=== PATIENT | male | born 1960 | race Caucasian/White ===

== ENCOUNTER 2023-06-18 19:00 | Emergency (ER) | payer OTHER, SELFPAY ==
--- NOTE | 2023-06-18 | ECG_ITS ---
Test Reason : CLEARANCE Blood Pressure : / mmHG Vent. Rate : 077 BPM Atrial Rate : 077 BPM P-R Int : 168 ms QRS Dur : 088 ms QT Int : 358 ms P-R-T Axes : 079 065 065 degrees QTc Int : 405 ms Normal sinus rhythm Nonspecific T wave abnormality Abnormal ECG No previous ECGs available Referred By: Generic ED Physician Electronically Signed By:SUZIE MAYS MD
[2023-06-18 19:44] VITALS: BP 142/66; PULSE 68; RESP 18; TEMP 36.9; O2SAT 97; BMI 21.1
--- NOTE | 2023-06-18 19:45 | ED_ITS ---
HPI - General Adult General Chief complaint: Medical Clearance Stated complaint: medical clearance Time Seen by Provider: 06/18/23 21:48 Source: patient Mode of arrival: ambulatory History of Present Illness HPI narrative: 62-year-old male who [facility] use [facility] and drugs-primarily cocaine. He has no acute complaints at this time. Related Data Allergies Allergy/AdvReac Type Severity Reaction Status Date / Time No Known Allergies Allergy Verified 06/18/23 19:47 Review of Systems 2 Review of Systems: Pertinent positives and negatives as stated in HPI PMFSH Past Medical History Source: nursing notes reviewed Social History Social History Advance Directives: No Advance Directives Information Provided: No Physical Exam ED Vital Signs: Vital Signs - 24 hr 06/18/23 19:44 Temperature 98.4 F Pulse Rate 68 Respiratory Rate 18 Blood Pressure 142/66 H Pulse Oximetry 97 Oxygen Delivery Method Room Air BMI result Body Mass Index 21.1 VITAL SIGNS: Reviewed. GENERAL: Well developed, well nourished, in no acute distress. HEAD: Normocephalic/atraumatic EYES: PERRLA, EOMI EARS: Ext canals without abnormality NOSE: Nares patent bilateral OROPHARYNX: no oral lesions noted, posterior pharynx clear NECK: Supple, no adenopathy LUNGS: Normal breath sounds. No adventitious sounds or accessory muscle use. SpO2<97> CARDIOVASCULAR: Regular rate and rhythm without noted murmurs ABDOMEN: Soft, non-tender, non-distended with bowel sounds. MUSCULOSKELETAL: No tenderness, deformities, or effusions noted on gross inspection. EXTREMITIES: No cyanosis, clubbing or edema. SKIN: Inspection of the skin reveals no rashes NEUROLOGIC: Alert and oriented x 4. Strength and sensation to light touch were grossly intact x 4, cranial nerves 2-12 are grossly intact. Course Course Course Narrative: This is a rapid medical exam. Deferred additional HPI, ROS, PE to primary provider. 62 yo male with history of PTSD, bipolar disorder here seeking detox (crack cocaine, alcohol), [facility] and was referred into the emergency room for medical clearance 1st. Patient no physical complaints. Denies SI or HI. Will obtain labs, [place], COVID screen VSS Medical Decision Making Medical Decision Making MDM Narrative: 60-year-old male with history and clinical presentation consistent with polysubstance use disorder, on review of all investigations there is no leukocytosis/left shift, there is no thrombocytopenia there is a normocytic anemia of unclear significance as there are no comparison labs but there is no history of clinical findings to suggest acute bleeding. Chemistry indices are negative for ISAI and there is no electrolyte or liver enzyme abnormalities. Patient is alcohol is undetectable, salicylate and acetaminophen values are undetectable, urine toxicology demonstrates positivity for fentanyl and cocaine. COVID-19 testing is negative and EKG shows no QT or QTC prolongation. This time patient is medically cleared for further evaluation for detox program. Patient placed in physician observation because the patient needed more time for evaluation by the assistant baseball coach in the morning to coordinate detox program at [facility]. At the time observation was started the patient's vital signs were stable, patient is alert and oriented, neuro: Nonfocal, CV RRR, lungs clear Differential Diagnosis Differential Diagnoses: The differential diagnosis associated with the presentation includes Please see the discussion above Admission/Observation Consideration of admission/observation: Escalation of care including admission/observation considered Please see the discussion above Lab Data MDM Lab Attestation statement: I reviewed the patient's lab results. Please see the discussion above 06/18/23 20:03 06/18/23 20:03 Labs: Lab Results 06/18/23 06/18/23 06/18/23 Range/Units 20:03 20:04 21:35 WBC 7.5 (4.8-10.8) X10*3/uL RBC 4.13 L (4.60-5.80) X10*6/uL Hgb 12.2 L (14.0-18.0) g/dl Hct 37.4 L (42.0-52.0) % MCV 90.6 (80.0-98.0) fL MCH 29.5 (27.0-33.0) pg MCHC 32.6 (31.0-36.0) g/dl RDW 13.2 (11.0-16.0) % Plt Count 243 (160-400) X10*3/uL MPV 9.6 (9.4-12.4) fL Immature Gran % (Auto) 0.1 (0.0-0.4) % Neut % (Auto) 61.4 (45-73) % Lymph % (Auto) 26.5 (20-40) % [place] % (Auto) 10.1 (2-11) % Eos % (Auto) 1.2 (0-4) % Baso % (Auto) 0.7 (0-2) % Lymph # (Auto) 2.0 (1.2-4.9) X10*3/uL [place] # (Auto) 0.8 (0.1-1.2) X10*3/uL Eos # (Auto) 0.1 (0.0-0.4) X10*3/uL Baso # (Auto) 0.1 (0.0-0.2) X10*3/uL Abs Immat Gran (auto) 0.01 (0.00-0.03) X10*3/uL Absolute Neuts (auto) 4.6 (2.0-8.3) x10*3/uL Absolute Nucleated RBC 0.000 (0.0-0.012) X10*3/uL Nucleated RBC % (auto) 0.0 (0.0-0.2) /100WBC Sodium 144 (135-145) mmol/L Potassium 4.2 (3.3-5.1) mmol/L Chloride 110 H (96-108) mmol/L Carbon Dioxide 26 (22-29) mmol/L Anion Gap 12 (12-20) BUN 21 H (9-16) mg/dL Creatinine 0.82 (0.5-1.4) mg/dL Estim Creat Clear Calc 95.9 Estimated GFR > 60 Random Glucose 74 (60-115) mg/dL Calcium 9.0 (8.4-10.2) mg/dL Total Bilirubin 0.1 (0.0-1.0) mg/dL Direct Bilirubin < 0.2 (0.0-0.5) mg/dL AST 21 (5-37) U/L ALT 17 (0-40) U/L Alkaline Phosphatase 77 (39-117) U/L Total Protein 7.3 (6.5-8.0) g/dL Albumin 3.8 (3.5-5.0) g/dL Salicylates < 5.0 L (15-30) mg/dL Urine Opiates Screen Not Detected (Not Detect) Urine Fentanyl Screen POSITIVE H (Not Detect) Acetaminophen < 3 (<30) mcg/mL Ur Barbiturates Screen Not Detected (Not Detect) Ur Phencyclidine Scrn Not Detected (Not Detect) Ur Amphetamines Screen Not Detected (Not Detect) U Benzodiazepines Scrn Not Detected (Not Detect) Urine Cocaine Screen POSITIVE H (Not Detect) U Marijuana (THC) Screen Not Detected (Not Detect) Ethyl Alcohol < 10 mg/dL COVID-19 (TIFFANIE) Negative (Negative) COVID-19 Clin Com See Note Independent Interpretation I performed an independent interpretation of an: EKG Interpretation: Normal sinus rhythm, HR-77, no STEMI, IL/QRS/QTC is within normal limits. Chronic Conditions Patient?s care impacted by: Other Polysubstance use disorder Critical Care Time Critical Care Time Critical Care Time: Yes Total Critical Care Time: 30 Attestation: I personally attest to this time spent taking care of the patient. Discharge Plan Discharge Clinical Impression: Polysubstance use disorder Patient Disposition: Still a Patient
[2023-06-18 20:15] LABS: MANUAL DIFF FLAG NO
[2023-06-18 20:16] LABS: Basophils Absolute Auto 0.1 X10*3/uL (0.0-0.2); Basophils Percent Auto 0.7 % (0-2); Eosinophils Absolute Auto 0.1 X10*3/uL (0.0-0.4); Eosinophils Percent Auto 1.2 % (0-4); Hematocrit 37.4 % (42.0-52.0); Hemoglobin 12.2 g/dl (14.0-18.0); Imm Gran Abs Auto 0.01 X10*3/uL (0.00-0.03); Imm Gran Pct Auto 0.1 % (0.0-0.4); Lymphocytes Percent Auto 26.5 % (20-40); Mean Corpuscular HGB Conc 32.6 g/dl (31.0-36.0); Mean Corpuscular Hemoglobin 29.5 pg (27.0-33.0); Mean Corpuscular Volume 90.6 fL (80.0-98.0); Mean Platelet Volume 9.6 fL (9.4-12.4); Monocytes Absolute Auto 0.8 X10*3/uL (0.1-1.2); Monocytes Percent Auto 10.1 % (2-11); Neutrophils Absolute Auto 4.6 x10*3/uL (2.0-8.3); Neutrophils Percent Auto 61.4 % (45-73); Platelet Count 243 X10*3/uL (160-400); Red Blood Count 4.13 X10*6/uL (4.60-5.80); Red Cell Distribution Width 13.2 % (11.0-16.0); White Blood Count 7.5 X10*3/uL (4.8-10.8)
[2023-06-18 20:29] LABS: COVID-19 Test Negative (Negative); IDNOW Serial# 08D9AD1C
[2023-06-18 20:34] LABS: Alanine Aminotransferase 17 U/L (0-40); Albumin Level 3.8 g/dL (3.5-5.0); Alkaline Phosphatase 77 U/L (39-117); Anion Gap 12 (12-20); Aspartate Amino Transferase 21 U/L (5-37); Bilirubin Direct < 0.2 mg/dL (0.0-0.5); Bilirubin Total 0.1 mg/dL (0.0-1.0); Blood Urea Nitrogen 21 mg/dL (9-16); Carbon Dioxide 26 mmol/L (22-29); Chloride 110 mmol/L (96-108); Creatinine Clr Calc Pharmacy 95.9; Estimated Glomerular Filt Rate > 60; Glucose Random 74 mg/dL (60-115); Potassium 4.2 mmol/L (3.3-5.1); Sodium 144 mmol/L (135-145); Total Protein 7.3 g/dL (6.5-8.0)
[2023-06-18 20:38] LABS: Ethanol < 10 mg/dL
[2023-06-18 20:38] LABS: Acetaminophen LAB < 3 mcg/mL (<30); Salicylate < 5.0 mg/dL (15-30)
[2023-06-18 21:53] LABS: Amphetamine Screen Urine Not Detected (Not Detect); Barbiturates, Urine Not Detected (Not Detect); Benzodiazepines Screen Urine Not Detected (Not Detect); Cannabinoid Screen Urine Not Detected (Not Detect); Cocaine Screen Urine POSITIVE (Not Detect); Fentanyl, urine POSITIVE (Not Detect); Opiate Screen Urine Not Detected (Not Detect); Phencyclidine Screen Urine Not Detected (Not Detect)
--- NOTE | 2023-06-18 23:06 | MHC.CARE ---
T[facility]W called [facility]. Supervisor Mending reports no one is available for intake for Detox until the morning.Pt can call [phone] for OR nurse connect to begin the process. Pt is referred over to Recovery who can help facilitate in the morning.
--- NOTE | 2023-06-19 06:59 | PC.NURSE ---
Resumed care of patient who is reported to be going to [facility] today. Pt is currently sleeping, personal belongings in room. All needs met at this time
[2023-06-19 08:00] VITALS: BP 132/82; PULSE 79; RESP 16; TEMP 36.8; O2SAT 97
--- NOTE | 2023-06-19 08:03 | PC.NURSE ---
PT WAS SLEEPING EASILY AROUSED , HE STATES HE HAS GENERAL ACHES. VSS, HE IS AMBULATORY IN THE ED INDEPENDENTLY. HE HAS A LARGE AMOUNT OF BELONGINGS IN THE ROOM WITH HIM AND IS IN HIS OWN ATTIRE. IT APPEARS THAT HE HAS BEEN EATING AND TOLERATING PO INTAKE. AWAITING RECOVERY FOR ASSIST WITH [facility] PLACEMENT FOR DETOX
--- NOTE | 2023-06-19 09:49 | MHC.RECOVSUP ---
Met with pt in [facility] who is here for medical clearance. Pt reports taking about 2-3 grams of cocaine daily and was last treated at [facility] in [place] 7 months ago. Pt would like to go back to [place] and medical information has been faxed.
[2023-06-19 11:10] VITALS: BP 134/83; PULSE 68; RESP 20; TEMP 36.7; O2SAT 96
--- NOTE | 2023-06-19 14:01 | MHC.CARE ---
Pt is a 62 Y/O SINGLE, Kiswahili speaking, male who is previously unknown to the CARE Team.? Yesterday, pt self-presented to the ED [facility].? Pt is requesting to be medically cleared prior to going to the [facility].? Pt is denying SI, HI, and being in a psychiatric crisis.? He denies SI on the [place] Suicide Screening that was administered.? Pt is medically cleared and referred to the [facility] for [facility] the [facility]. CARE Team is advised that pt cannot be accepted to the [facility] without a crisis assessment.? CARE Team is assessing pt for psychiatric crisis.? Pt denies no hx of SI or attempts.? He reports no psychiatric admissions though he does report recent inpatient for substance use.? Pt is assessed in his room in minor care.? He is observed lying on the bed in the room and complains that his eyes hurt.? He makes no eye contact during the assessment.? Pt?s speech is unremarkable.? Pt appears his stated age; he appears disheveled, and is malodorous.? Luggage is noted to be in the room with him.? Pt has no patient observer with him, as there has been no indication of crisis. Pt reports ?ok? sleep and appetite stating he eats when there is food available to him.? He denies AVH, HI, SI, , and self-harm urges.? He denies any hx of.? Pt?s thought process appears linear and organized.? Pt?s insight, judgement, memory, and concentration appear unimpaired. Pt reports a dx of PTSD and stated ?That?s what they tell me? when asked if the dx was related to his service.? Pt stated that he served 5 years in the [employer] on a [employer]. Pt is homeless and unsheltered.? He reports that this was ?Self-inflicted?.? 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 Pt reports that he is a daily crack user. When asked why he presented to the ED he stated he is here for substance use help and housing. Pt reports he has no therapist or prescriber and stated he was at one time on medications but has stopped as it is challenging to maintain taking his medications as he ?bounces around from one place to another.? Pt denies withdrawal sx. No Known Allergies?
[2023-06-19 14:46] VITALS: BP 138/72; PULSE 67; RESP 18; TEMP 36.6; O2SAT 97
--- NOTE | 2023-06-19 18:23 | PC.NURSE ---
Patient continues to be calm and cooperative with staff. [facility]ing [facility] to [facility] at this time. No s/s of distress noted, patient has no complaints.
[2023-06-19 21:06] VITALS: BP 118/64; PULSE 80; RESP 19; TEMP 36.6; O2SAT 98
[2023-06-19 23:44] VITALS: BP 147/67; PULSE 60; RESP 12; TEMP 36.3; O2SAT 98
--- NOTE | 2023-06-20 01:00 | PC.NURSE ---
Pt ambulatory with steady gait to the bathroom. Food and drink provided as requested. No apparent distress noted.
--- NOTE | 2023-06-20 04:41 | PC.NURSE ---
Pt ambulatory with steady gait to the bathroom.
--- NOTE | 2023-06-20 04:50 | PC.NURSE ---
pt walking out care team attempting to contact to talk with pt first.
--- NOTE | 2023-06-20 05:10 | PC.NURSE ---
Pt is aox4, ambulatory with steady gait. Denies SI/HI. No distress noted. Pt gathered all belonging and expresses desire to leave. Reports not wanting to wait for [facility] to pick him up and is stating to leave as friend is waiting outside for him. Charge nurse made aware as pt is walking outside and will not stay.
== END 2023-06-20 05:15 | disposition left against medical advice (07) ==
PROVIDERS: Nurse Practitioner Family; Emergency Provider Student in an Organized Health Care Education/Training Program
DX: Z02.2 Encounter for examination for admission to residential institution (principal); F19.10 Other psychoactive substance abuse, uncomplicated; F43.10 Post-traumatic stress disorder, unspecified; F31.9 Bipolar disorder, unspecified; D64.9 Anemia, unspecified; Z11.52 Encounter for screening for COVID-19
CPT/HCPCS: 36415; 80048; 80076; 80143; 80179; 80307; 85025; 87635; 93005; 99285

== ENCOUNTER 2023-06-24 05:05 | Emergency (ER) | payer OTHER, SELFPAY ==
--- NOTE | ~2023-06-24 | XR_ITS ---
EXAMINATION: XR CHEST CLINICAL INFORMATION: Cough. COMPARISON: None available. TECHNIQUE: Frontal view of the chest was obtained. FINDINGS: The lungs are hyperexpanded. No focal consolidation. No pleural effusion. Cardiac silhouette is within normal limits. Old healed left-sided rib fractures. XR/XR chest 1V IMPRESSION: Hyperinflation.
[2023-06-24 05:34] VITALS: BP 128/75; PULSE 73; RESP 18; TEMP 37.2; O2SAT 96; BMI 21.6
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
--- NOTE | 2023-06-24 08:08 | ECG_ITS ---
Test Reason : OVERDOSE Blood Pressure : / mmHG Vent. Rate : 079 BPM Atrial Rate : 079 BPM P-R Int : 156 ms QRS Dur : 086 ms QT Int : 342 ms P-R-T Axes : 028 074 068 degrees QTc Int : 392 ms Normal sinus rhythm Normal ECG When compared with ECG of 18-JUN-2023 23:34, No significant change was found Referred By: Tena Nash Electronically Signed By:SUZIE MAYS MD
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
[2023-06-24 08:35] LABS: Basophils Percent Auto 0.3 % (0-2); Eosinophils Absolute Auto 0.1 X10*3/uL (0.0-0.4); Eosinophils Percent Auto 0.9 % (0-4); Hematocrit 40.8 % (42.0-52.0); Hemoglobin 13.5 g/dl (14.0-18.0); Imm Gran Abs Auto 0.03 X10*3/uL (0.00-0.03); Imm Gran Pct Auto 0.3 % (0.0-0.4); Lymphocytes Absolute Auto 1.1 X10*3/uL (1.2-4.9); Lymphocytes Percent Auto 10.4 % (20-40); MANUAL DIFF FLAG SCAN; Mean Corpuscular HGB Conc 33.1 g/dl (31.0-36.0); Mean Corpuscular Hemoglobin 29.3 pg (27.0-33.0); Mean Corpuscular Volume 88.7 fL (80.0-98.0); Monocytes Absolute Auto 0.9 X10*3/uL (0.1-1.2); Monocytes Percent Auto 7.9 % (2-11); Neutrophils Absolute Auto 8.6 x10*3/uL (2.0-8.3); Neutrophils Percent Auto 80.2 % (45-73); PLT CLUMP 1; Red Cell Distribution Width 12.8 % (11.0-16.0); SCAN SMEAR FLAG 1
[2023-06-24 08:37] LABS: White Blood Count 10.7 X10*3/uL (4.8-10.8)
[2023-06-24 08:49] LABS: COVID-19 Test Negative (Negative); IDNOW Serial# 08D9AD1C; IDNOW Serial# BCCEAD1C; Influenza A Negative (Negative); Influenza B2 Negative (Negative)
[2023-06-24 08:56] LABS: Platelet Count 159 X10*3/uL (160-400); SLIDE REVIEW VERIFIED
[2023-06-24 09:39] LABS: Alanine Aminotransferase 12 U/L (0-40); Albumin Level 3.5 g/dL (3.5-5.0); Alkaline Phosphatase 91 U/L (39-117); Anion Gap 8 (12-20); Aspartate Amino Transferase 18 U/L (5-37); Bilirubin Direct 0.1 mg/dL (0.0-0.5); Bilirubin Total 0.3 mg/dL (0.0-1.0); Blood Urea Nitrogen 12 mg/dL (9-16); Calcium 8.9 mg/dL (8.4-10.2); Carbon Dioxide 26 mmol/L (22-29); Chloride 108 mmol/L (96-108); Creatinine Clr Calc Pharmacy 110.1; Estimated Glomerular Filt Rate > 60; Ethanol < 10 mg/dL; Glucose Random 111 mg/dL (60-115); Magnesium 1.8 mg/dL (1.6-2.6); Potassium 3.9 mmol/L (3.3-5.1); Sodium 138 mmol/L (135-145); Total Protein 7.1 g/dL (6.5-8.0)
[2023-06-24 10:00] VITALS: BP 125/64; PULSE 80; RESP 18; O2SAT 96
[2023-06-24 11:40] LABS: Appearance Urine Clear; Color Urine Yellow; Glucose Urine UA Negative (Negative); Leukocyte Esterase Urine Negative (Negative); Nitrite Urine Negative (Negative); PH 5.5 (5.0-9.0); Specific Gravity - Urine 1.025 (1.005-1.025); Urine Blood Negative (Negative); Urine Ketones Negative (Negative); Urine Protein Negative (Neg-Trace)
[2023-06-24 12:20] LABS: Amphetamine Screen Urine Not Detected (Not Detect); Barbiturates, Urine Not Detected (Not Detect); Benzodiazepines Screen Urine Not Detected (Not Detect); Cannabinoid Screen Urine Not Detected (Not Detect); Cocaine Screen Urine POSITIVE (Not Detect); Fentanyl, urine POSITIVE (Not Detect); Opiate Screen Urine Not Detected (Not Detect); Phencyclidine Screen Urine Not Detected (Not Detect)
--- NOTE | 2023-06-24 14:21 | MHC.CARE ---
Pt was seen by CARE team for assessment and referred to recovery for placement in detox. Referral made to [place] [facility], they are reviewing for possible admission. [facility]ARE team to follow up this evening with [facility]. Recovery team to follow up in AM.
--- NOTE | 2023-06-24 14:33 | MHC.RECOVRN ---
Spoke with Gifty ([phone]? ext. [phone]) at the [facility] regarding [facility] referral, Gifty requesting [facility]. T/w faxed [facility]. Pts referral going to be reviewed by [facility] MD to determine if they can accept pt today.
[2023-06-24 15:30] VITALS: BP 144/63; PULSE 89; RESP 19; TEMP 36.3; O2SAT 98
--- NOTE | 2023-06-24 15:41 | MHC.RECOVRN ---
Followed up with [facility]ty at the [facility], reports they are swamped and pt has not been reviewed yet, most likely will be next shift (starting at 4PM). CARE Team aware.
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
[2023-06-24 17:47] VITALS: RESP 18
--- NOTE | 2023-06-24 18:09 | PC.NURSE ---
patient discharged to [facility] via [facility]. [place] in [place] arranged transport. Patient put chair in front of door and was refusing to get out of bed on EMS arrival. Patient did get out of bed and discharged with belongings.
== END 2023-06-24 18:11 | disposition still patient (30) ==
PROVIDERS: Emergency Provider Emergency Medicine
DX: F11.23 Opioid dependence with withdrawal (principal); R05.9 Cough, unspecified; Z11.52 Encounter for screening for COVID-19; Z20.822 Contact with and (suspected) exposure to COVID-19; Z79.899 Other long term (current) drug therapy
CPT/HCPCS: 71045; 80048; 80076; 80307; 81003; 83735; 85025; 87502; 87635; 93005; 99284; S9485

== ENCOUNTER 2023-09-21 09:27 | Emergency (ER) | payer OTHER, SELFPAY ==
--- NOTE | ~2023-09-21 | CT_ITS ---
EXAMINATION: CT ABDOMEN AND PELVIS WITH CONTRAST CLINICAL INFORMATION: Diffuse abdominal pain COMPARISON: None available. TECHNIQUE: Multidetector volumetric images were obtained from the superior aspect of the liver through the pubic symphysis following administration 85 mL of Omnipaque 350 intravenous contrast. Sagittal and coronal reformatted images were obtained on the technologist's workstation. Oral contrast: No This CT examination was performed using dose optimization techniques as appropriate, variously including the following: *Automated exposure control *Adjustment of mA and/or kV according to patient size (this includes techniques or standardized protocols for targeted exams where dose is matched to indication/reason for exam; i.e. extremities or head) *Use of iterative reconstruction technique DLP: 435 mGy-cm FINDINGS: LUNG BASES: Tree-in-bud micronodules in the left lung base with a 1.7 cm nodular opacity in the left lung base, 4:1 partially imaged. ABDOMINAL AND PELVIC WALL: Tiny fat-containing umbilical hernia. LIVER AND BILIARY TREE: Unremarkable. GALLBLADDER: Unremarkable. PANCREAS: Unremarkable. SPLEEN: Unremarkable. ADRENAL GLANDS: Unremarkable. KIDNEYS AND URETERS: Unremarkable. GASTROINTESTINAL TRACT: Small hiatal hernia. Colonic diverticulosis without peridiverticular inflammatory change to suggest diverticulitis. Fluid is noted within the rectum compatible with a diarrheal state. There are scattered areas of thick walled loops of small bowel with mild hyperenhancement suggestive of enteritis. Normal appendix. VASCULAR: Advanced atherosclerosis of the abdominal aorta. LYMPH NODES/PERITONEUM: No lymphadenopathy. FREE FLUID: None. BLADDER: Unremarkable. PELVIC VISCERA: Prostate is mildly enlarged. OSSEOUS STRUCTURES: Mild osteoarthritis of the hips. Multilevel degenerative disc disease. Transitional lumbosacral anatomy with a broad-based right L5 transverse process pseudoarticulating with the sacrum. CT/CT abdomen pelvis w IV con IMPRESSION: * There are scattered areas of thick walled loops of small bowel with mild hyperenhancement suggestive of enteritis. Fluid is noted within the rectum compatible with a diarrheal state. * Tree-in-bud micronodules in the left lung base with a 1.7 cm nodular opacity in the left lung base, partially imaged. While findings are favored to reflect sequelae of endobronchial infection per the 2017 revised Fleischner Society guidelines, further characterization with prompt complete chest CT is recommended. * Advanced atherosclerosis of the abdominal aorta. * Transitional lumbosacral anatomy with a broad-based right L5 transverse process pseudoarticulating with the sacrum.
[2023-09-21 09:46] VITALS: BP 149/90; PULSE 69; RESP 18; TEMP 36.6; O2SAT 98; BMI 21.1
[2023-09-21 10:03] LABS: MANUAL DIFF FLAG NO
[2023-09-21 10:08] LABS: Basophils Percent Auto 0.1 % (0-2); Eosinophils Absolute Auto 0.2 X10*3/uL (0.0-0.4); Eosinophils Percent Auto 2.2 % (0-4); Hematocrit 45.8 % (42.0-52.0); Imm Gran Abs Auto 0.04 X10*3/uL (0.00-0.03); Imm Gran Pct Auto 0.4 % (0.0-0.4); Lymphocytes Absolute Auto 1.3 X10*3/uL (1.2-4.9); Lymphocytes Percent Auto 12.4 % (20-40); Mean Corpuscular HGB Conc 32.8 g/dl (31.0-36.0); Mean Corpuscular Hemoglobin 29.9 pg (27.0-33.0); Mean Corpuscular Volume 91.4 fL (80.0-98.0); Mean Platelet Volume 9.4 fL (9.4-12.4); Monocytes Absolute Auto 0.7 X10*3/uL (0.1-1.2); Monocytes Percent Auto 7.1 % (2-11); Neutrophils Absolute Auto 7.9 x10*3/uL (2.0-8.3); Neutrophils Percent Auto 77.8 % (45-73); Platelet Count 392 X10*3/uL (160-400); Red Blood Count 5.01 X10*6/uL (4.60-5.80); Red Cell Distribution Width 15.8 % (11.0-16.0); White Blood Count 10.1 X10*3/uL (4.8-10.8)
[2023-09-21 10:18] LABS: Alanine Aminotransferase 253 U/L (0-40); Albumin Level 3.6 g/dL (3.5-5.0); Alkaline Phosphatase 145 U/L (39-117); Anion Gap 10 (12-20); Aspartate Amino Transferase 143 U/L (5-37); Bilirubin Direct 0.3 mg/dL (0.0-0.5); Bilirubin Total 0.6 mg/dL (0.0-1.0); Blood Urea Nitrogen 22 mg/dL (9-16); Calcium 9.6 mg/dL (8.4-10.2); Carbon Dioxide 27 mmol/L (22-29); Chloride 105 mmol/L (96-108); Creatinine Clr Calc Pharmacy 70.5; Estimated Glomerular Filt Rate > 60; Glucose Random 101 mg/dL (60-115); Lipase 31 U/L (8-78); Potassium 4.7 mmol/L (3.3-5.1); Sodium 137 mmol/L (135-145); Total Protein 8.4 g/dL (6.5-8.0)
[2023-09-21 10:20] LABS: COVID-19 Test Negative (Negative); IDNOW Serial# 08D9AD1C; IDNOW Serial# 152EDE1D; Influenza A Negative (Negative); Influenza B2 Negative (Negative)
--- NOTE | 2023-09-21 11:55 | ED.ABDPAIN ---
HPI - Abdominal Pain General Chief Complaint: Abdominal Pain Stated Complaint: Not FeelingWell Time Seen by Provider: 09/21/23 11:37 History of Present Illness HPI narrative: Patient is a 63-year-old male with a history of polysubstance abuse. Uses cocaine and alcohol. Has a history of PTSD. Presented today with having abdominal pain diffuse over the entire abdomen with nausea vomiting diarrhea. No fever no chills no coughing no congestion no upper respiratory symptoms. Patient complaining of generalized malaise. Related Data Previous Rx's Medication Instructions Recorded ondansetron 4 mg disintegrating 4 mg PO TID PRN nausea and 09/21/23 tablet vomiting 5 days #10 tabs Allergies Allergy/AdvReac Type Severity Reaction Status Date / Time No Known Allergies Allergy Verified 09/21/23 09:44 Review of Systems Review of Systems No fever no chills no diaphoresis Yes all other systems are reviewed and are negative [facility] Past Medical History Attestation statement: The following information was validated with the patient. Medical History Active substance abuse Social History Social History Alcohol intake: current Alcohol intake frequency: 3 or more drinks per day Alcohol type: beer, wine and hard liquor Substance Use Type: Heroin Advance Directives: No Advance Directives Information Provided: No Physical Exam ED Vital Signs: Vital Signs - 24 hr 09/21/23 09:46 Temperature 98 F Pulse Rate 69 Respiratory Rate 18 Blood Pressure 149/90 H Pulse Oximetry 98 Oxygen Delivery Method Room Air BMI result Body Mass Index 21.1 Appearance: Alert. Oriented X3. No acute distress. Eyes: Pupils equal, round and reactive to light. ENT: Pharynx normal. Neck: Normal inspection. Neck supple. No lymph nodes noted. No crepitus CVS: Normal heart rate and rhythm. Pulses normal. Normal S1 and S2 Respiratory: No respiratory distress. Breath sounds normal. No Wheezing. No rales Abdomen: Soft and nontender. No rigidity. No distention. good BS x4 Skin: Skin warm and dry. Normal skin color. Normal skin turgor. Extremities: No lower extremity edema. Neurovascular intact to all extremities. No Lacerations. No Rash Neuro: Oriented X 3. No motor deficit. No sensory deficit. Moving all extermities. No slurred speech Medical Decision Making Medical Decision Making [facility] Narrative: Patient is 63 years old presents today with having nausea vomiting diarrhea generalized malaise abdominal pain. Patient's LFT showed elevated AST and ALT. However ALT is more elevated than AST. Not consistent with alcohol liver disease. Tylenol level was negative. Hepatitis panel was sent. CT scan of the abdomen did not show any acute evidence of obstruction abscess perforation. It did show some pulmonary nodules which patient will follow-up with this was discussed with him. It did show evidence of gastroenteritis. This finding was also discussed with GI. Patient will follow-up with his primary physician in the next 3 days at the [place]. also explained to patient the need to follow with GI on an outpatient basis. Worsening condition to return. Currently in stable condition. Differential Diagnosis Differential Diagnoses: The differential diagnosis associated with the presentation includes Liver cirrhosis, polysubstance abuse, gastroenteritis, obstruction, Admission/Observation Consideration of admission/observation: Escalation of care including admission/observation considered Consult Healthcare Provider Management of the patient was discussed with: [employer] Molder (Dr. Olsen GI) Lab Data [facility] Lab Attestation statement: I reviewed the patient's lab results. 09/21/23 09:58 09/21/23 09:58 Labs: Lab Results 09/21/23 09/21/23 09/21/23 Range/Units 09:58 12:22 13:09 WBC 10.1 (4.8-10.8) X10*3/uL RBC 5.01 (4.60-5.80) X10*6/uL Hgb 15.0 (14.0-18.0) g/dl Hct 45.8 (42.0-52.0) % MCV 91.4 (80.0-98.0) fL MCH 29.9 (27.0-33.0) pg MCHC 32.8 (31.0-36.0) g/dl RDW 15.8 (11.0-16.0) % Plt Count 392 D (160-400) X10*3/uL MPV 9.4 (9.4-12.4) fL Immature Gran % (Auto) 0.4 (0.0-0.4) % Neut % (Auto) 77.8 H (45-73) % Lymph % (Auto) 12.4 L (20-40) % [place] % (Auto) 7.1 (2-11) % Eos % (Auto) 2.2 (0-4) % Baso % (Auto) 0.1 (0-2) % Lymph # (Auto) 1.3 (1.2-4.9) X10*3/uL [place] # (Auto) 0.7 (0.1-1.2) X10*3/uL Eos # (Auto) 0.2 (0.0-0.4) X10*3/uL Baso # (Auto) 0.0 (0.0-0.2) X10*3/uL Abs Immat Gran (auto) 0.04 H (0.00-0.03) X10*3/uL Absolute Neuts (auto) 7.9 (2.0-8.3) x10*3/uL Absolute Nucleated RBC 0.000 (0.0-0.012) X10*3/uL Nucleated RBC % (auto) 0.0 (0.0-0.2) /100WBC PT 11.9 (11.1-13.3) SEC INR 1.0 (0.9-1.1) Sodium 137 (135-145) mmol/L Potassium 4.7 (3.3-5.1) mmol/L Chloride 105 (96-108) mmol/L Carbon Dioxide 27 (22-29) mmol/L Anion Gap 10 L (12-20) BUN 22 H (9-16) mg/dL Creatinine 1.10 (0.5-1.4) mg/dL Estim Creat Clear Calc 70.5 Estimated GFR > 60 Random Glucose 101 (60-115) mg/dL Calcium 9.6 D (8.4-10.2) mg/dL Total Bilirubin 0.6 (0.0-1.0) mg/dL Direct Bilirubin 0.3 (0.0-0.5) mg/dL AST 143 H (5-37) U/L ALT 253 H (0-40) U/L Alkaline Phosphatase 145 H (39-117) U/L Total Protein 8.4 H (6.5-8.0) g/dL Albumin 3.6 (3.5-5.0) g/dL Lipase 31 (8-78) U/L Urine Color Urine Appearance Urine pH (5.0-9.0) Ur Specific [place] (1.005-1.025) Urine Protein (Neg-Trace) mg/dL Urine Glucose (UA) (Negative) mg/dL Urine Ketones (Negative) mg/dL Urine Blood (Negative) Urine Nitrite (Negative) Ur Leukocyte Esterase (Negative) Acetaminophen < 3 (<30) mcg/mL Ethyl Alcohol < 10 mg/dL COVID-19 (TIFFANIE) Negative (Negative) COVID-19 Clin Com See Note Influenza Type A (PATRICK) Negative (Negative) Influenza Type A (PCR) NEGATIVE (Negative) Influenza Type B (PATRICK) Negative (Negative) Influenza Type B (PCR) NEGATIVE (Negative) Influenza A & B Note See Note RSV RNA Qual (PCR) NEGATIVE (Negative) SARS-CoV-2 RNA (RT-PCR) NEGATIVE (Negative) 09/21/23 Range/Units 15:08 WBC (4.8-10.8) X10*3/uL RBC (4.60-5.80) X10*6/uL Hgb (14.0-18.0) g/dl Hct (42.0-52.0) % MCV (80.0-98.0) fL MCH (27.0-33.0) pg MCHC (31.0-36.0) g/dl RDW (11.0-16.0) % Plt Count (160-400) X10*3/uL MPV (9.4-12.4) fL Immature Gran % (Auto) (0.0-0.4) % Neut % (Auto) (45-73) % Lymph % (Auto) (20-40) % [place] % (Auto) (2-11) % Eos % (Auto) (0-4) % Baso % (Auto) (0-2) % Lymph # (Auto) (1.2-4.9) X10*3/uL [place] # (Auto) (0.1-1.2) X10*3/uL Eos # (Auto) (0.0-0.4) X10*3/uL Baso # (Auto) (0.0-0.2) X10*3/uL Abs Immat Gran (auto) (0.00-0.03) X10*3/uL Absolute Neuts (auto) (2.0-8.3) x10*3/uL Absolute Nucleated RBC (0.0-0.012) X10*3/uL Nucleated RBC % (auto) (0.0-0.2) /100WBC PT (11.1-13.3) SEC INR (0.9-1.1) Sodium (135-145) mmol/L Potassium (3.3-5.1) mmol/L Chloride (96-108) mmol/L Carbon Dioxide (22-29) mmol/L Anion Gap (12-20) BUN (9-16) mg/dL Creatinine (0.5-1.4) mg/dL Estim Creat Clear Calc Estimated GFR Random Glucose (60-115) mg/dL Calcium (8.4-10.2) mg/dL Total Bilirubin (0.0-1.0) mg/dL Direct Bilirubin (0.0-0.5) mg/dL AST (5-37) U/L ALT (0-40) U/L Alkaline Phosphatase (39-117) U/L Total Protein (6.5-8.0) g/dL Albumin (3.5-5.0) g/dL Lipase (8-78) U/L Urine Color Yellow Urine Appearance Clear Urine pH 5.0 (5.0-9.0) Ur Specific [place] >= 1.030 H (1.005-1.025) Urine Protein Negative (Neg-Trace) mg/dL Urine Glucose (UA) Negative (Negative) mg/dL Urine Ketones Negative (Negative) mg/dL Urine Blood Negative (Negative) Urine Nitrite Negative (Negative) Ur Leukocyte Esterase Negative (Negative) Acetaminophen (<30) mcg/mL Ethyl Alcohol mg/dL COVID-19 (TIFFANIE) (Negative) COVID-19 Clin Com Influenza Type A (PATRICK) (Negative) Influenza Type A (PCR) (Negative) Influenza Type B (PATRICK) (Negative) Influenza Type B (PCR) (Negative) Influenza A & B Note RSV RNA Qual (PCR) (Negative) SARS-CoV-2 RNA (RT-PCR) (Negative) Independent Interpretation I performed an independent interpretation of an: CT Scan (No gross obstruction abscess perforation) Radiology Impression Discussion of test interpretation with radiology: I have reviewed the radiologist's reading. Prescription Management Anti nausea medication will be given Medications Administered Discontinued Medications Generic Name Dose Route Start Last Admin Trade Name Freq PRN Reason Stop Dose Admin Sodium Chloride 1,000 mls @ 999 mls/hr 09/21/23 12:00 09/21/23 15:14 Ns IV 09/21/23 13:00 Infused .Q1H1M WILLAM Infusion Sodium Chloride 1,000 mls @ 999 mls/hr 09/21/23 12:00 09/21/23 15:14 Ns IV 09/21/23 13:00 Infused .Q1H1M WILLAM Infusion Iohexol 100 ml 09/21/23 13:31 09/21/23 13:31 Iohexol 350 Mg/Ml 100 Ml Infus..Btl IV 09/21/23 13:32 85 ml ONCE ONE Administration Ondansetron HCl 4 mg 09/21/23 11:55 09/21/23 12:24 Ondansetron Hcl 4 Mg/2 Ml Vial IVPUSH 09/21/23 11:56 4 mg ONCE ONE Administration Discharge Plan Discharge Clinical Impression: Gastroenteritis Patient Disposition: Home, Self-Care Instructions: Enteritis (ED) Additional Instructions: Encourage fluids. Please closely follow-up with your doctor on an outpatient basis. Pulmonary nodules was noted on your CT scan of the abdomen. He must follow-up. Small risk of cancer exists. Please also get repeat blood drawn when you follow-up with your regular doctor. Your liver function test was elevated today. Please follow-up with GI in a few days. Prescriptions: New ondansetron 4 mg tablet,disintegrating 4 mg PO TID PRN (Reason: nausea and vomiting) 5 Days Qty: 10 0RF Referrals: Castillo Olsen MD [Physician] - 09/23/23
[2023-09-21] MEDS: 0.9 % Sodium Chloride 1,000 ML 999 ML IV ×2 (12:24→13:13)
[2023-09-21] MEDS: ondansetron HCL 4 MG/2 ML VIAL IVPUSH (12:24)
[2023-09-21 12:37] LABS: Prothrombin Time 11.9 SEC (11.1-13.3)
[2023-09-21 12:46] LABS: Ethanol < 10 mg/dL
[2023-09-21 12:49] LABS: Acetaminophen LAB < 3 mcg/mL (<30)
[2023-09-21] MEDS: iohexoL 350 MG/ML 100 ML INFUS..BTL IV (13:31)
[2023-09-21 13:53] LABS: Influenza A PCR NEGATIVE (Negative); Influenza B PCR NEGATIVE (Negative); Resp Syncy Virus RNA Qual PCR NEGATIVE (Negative); SARS COV2 PCR INHOUSE NEGATIVE (Negative)
[2023-09-21 15:16] LABS: Appearance Urine Clear; Color Urine Yellow; Glucose Urine UA Negative (Negative); Leukocyte Esterase Urine Negative (Negative); Nitrite Urine Negative (Negative); Specific Gravity - Urine >= 1.030 (1.005-1.025); Urine Blood Negative (Negative); Urine Ketones Negative (Negative); Urine Protein Negative (Neg-Trace)
[2023-09-21 15:42] LABS: Amphetamine Screen Urine Not Detected (Not Detect); Barbiturates, Urine Not Detected (Not Detect); Benzodiazepines Screen Urine Not Detected (Not Detect); Cannabinoid Screen Urine Not Detected (Not Detect); Cocaine Screen Urine POSITIVE (Not Detect); Fentanyl, urine POSITIVE (Not Detect); Opiate Screen Urine Not Detected (Not Detect); Phencyclidine Screen Urine Not Detected (Not Detect)
[2023-09-22 04:01] LABS: Hepatitis A Antibody IgG REACTIVE (Nonreactive); ~Hepatitis A Antibody IgG 2.26 S/CO (0.00-0.99)
[2023-09-22 04:21] LABS: HBS Num1 0.07 mIU/mL (0-7.99); HBc Num1 0.16 S/CO (0.00-0.79); HBsAGNum1 0.31 S/CO (0.00-0.99); Hepatitis B Core Antibody Nonreactive (Nonreactive); Hepatitis B Surface Antigen Negative (Negative); ~HepC Num1 11.28 S/CO (0.00-0.79); ~Hepatitis B Surface Antibody NONREACTIVE (Nonreactive); ~Hepatitis C Antibody Reactive (Nonreactive)
[2023-09-22 04:49] LABS: Hepatitis A Antibody IgM 0.23 Index (0-0.79); ~Hepatitis A Antibody IgM Nonreactive (Nonreactive)
== END 2023-09-21 15:36 | disposition home or self-care (01) ==
PROVIDERS: Emergency Provider Emergency Medicine Emergency Medical Services
DX: K52.9 Noninfective gastroenteritis and colitis, unspecified (principal); R53.81 Other malaise; R10.9 Unspecified abdominal pain; Z11.52 Encounter for screening for COVID-19; Z20.828 Contact with and (suspected) exposure to other viral communicable diseases; F19.10 Other psychoactive substance abuse, uncomplicated; R11.2 Nausea with vomiting, unspecified; R74.8 Abnormal levels of other serum enzymes; R91.1 Solitary pulmonary nodule
CPT/HCPCS: 0241U; 36415; 74177; 80048; 80076; 80143; 80307; 81003; 83690; 85025; 85610; 86704; 86706; 86708; 86709; 86803; 87340; 87502; 87635; 96361; 96374; 99283; 99285; J2405; Q9967

== ENCOUNTER 2024-08-10 23:35 | Emergency (ER) | payer OTHER, SELFPAY ==
[2024-08-10 23:48] VITALS: BMI 21.4
[2024-08-11 00:29] LABS: Basophils Percent Auto 0.3 % (0-2); Eosinophils Percent Auto 0.2 % (0-4); Hemoglobin 12.1 g/dl (14.0-18.0); Imm Gran Abs Auto 0.04 X10*3/uL (0.00-0.03); Imm Gran Pct Auto 0.3 % (0.0-0.4); Lymphocytes Absolute Auto 2.2 X10*3/uL (1.2-4.9); Lymphocytes Percent Auto 18.7 % (20-40); MANUAL DIFF FLAG SCAN; Mean Corpuscular HGB Conc 33.6 g/dl (31.0-36.0); Mean Corpuscular Hemoglobin 30.8 pg (27.0-33.0); Mean Corpuscular Volume 91.6 fL (80.0-98.0); Mean Platelet Volume 10.1 fL (9.4-12.4); Monocytes Absolute Auto 1.5 X10*3/uL (0.1-1.2); Monocytes Percent Auto 12.8 % (2-11); Neutrophils Absolute Auto 8.1 x10*3/uL (2.0-8.3); Neutrophils Percent Auto 67.7 % (45-73); Platelet Count 206 X10*3/uL (160-400); Red Blood Count 3.93 X10*6/uL (4.60-5.80); Red Cell Distribution Width 13.2 % (11.0-16.0); SCAN SMEAR FLAG 1; White Blood Count 11.9 X10*3/uL (4.8-10.8)
[2024-08-11 00:45] LABS: Alanine Aminotransferase 778 U/L (0-40); Albumin Level 3.2 g/dL (3.5-5.0); Alkaline Phosphatase 134 U/L (39-117); Anion Gap 10 (12-20); Aspartate Amino Transferase 521 U/L (5-37); Bilirubin Total 1.4 mg/dL (0.0-1.0); Blood Urea Nitrogen 20 mg/dL (9-16); Calcium 8.1 mg/dL (8.4-10.2); Carbon Dioxide 22 mmol/L (22-29); Chloride 107 mmol/L (96-108); Creatinine Clr Calc Pharmacy 106.1; Estimated Glomerular Filt Rate > 60; Ethanol < 10 mg/dL; Glucose Random 81 mg/dL (60-115); Sodium 135 mmol/L (135-145); Total Protein 7.1 g/dL (6.5-8.0)
[2024-08-11 00:48] LABS: SLIDE REVIEW VERIFIED
[2024-08-11 00:49] LABS: Color Urine Dark Yellow; Glucose Urine UA Negative (Negative); Leukocyte Esterase Urine Negative (Negative); Nitrite Urine Negative (Negative); PH 5.5 (5.0-9.0); Urine Blood Negative (Negative); Urine Ketones Negative (Negative); Urine Protein Negative (Neg-Trace)
[2024-08-11 00:51] LABS: Appearance Urine Clear
[2024-08-11 00:52] LABS: Amphetamine Screen Urine Not Detected (Not Detect); Barbiturates, Urine Not Detected (Not Detect); Benzodiazepines Screen Urine Not Detected (Not Detect); Buprenorphine Scr Not Detected (Not Detect); Cannabinoid Screen Urine Not Detected (Not Detect); Cocaine Screen Urine POSITIVE (Not Detect); Fentanyl, urine POSITIVE (Not Detect); Methadone Screen, Urine Not Detected (Not Detect); Opiate Screen Urine Not Detected (Not Detect); Oxycodone Screen Urine Not Detected (Not Detect); Phencyclidine Screen Urine Not Detected (Not Detect)
--- NOTE | 2024-08-11 01:54 | ED.PSYCH ---
HPI - Psych General Chief Complaint: Psychiatric Symptoms Stated Complaint: HOMELESS AND IN MANIC STATE Time Seen by Provider: 08/11/24 00:02 Source: patient Mode of arrival: ambulatory Limitations: no limitations History of Present Illness ED Provider: Dr. Patrica Foster HPI Narrative: Patient comes to the emergency room via ambulance for disorganized behavior. Patient was found sleeping in a community laundry room for an apartment complex where he does not live. Patient hyperverbal, alert and oriented x3, compliant. Patient does not have any complaints but seems manic. Related Data Home Medications ?Medication ?Instructions ?Recorded ?Confirmed No Known Home Meds 08/11/24 08/11/24 Allergies Allergy/AdvReac Type Severity Reaction Status Date / Time No Known Allergies Allergy Verified 08/10/24 23:56 Review of Systems Review of Systems: Yes Unobtainable due to mental condition PMFSH Past Medical History Medical History Active substance abuse Social History Social History Alcohol intake: current Alcohol intake frequency: 3 or more drinks per day Alcohol type: beer, wine and hard liquor Substance Use Type: Heroin Advance Directives: No Advance Directives Information Provided: No Do you have a plan to hurt others: No Plan Physical Exam Vital Signs: Vital Signs: BMI result Body Mass Index 21.4 Const: Other: Appearance: Alert. Oriented X3. No acute distress. Hyperverbal/mumbling, manic Eyes: Pupils equal, round and reactive to light. ENT: Pharynx normal. Neck: Normal inspection. Neck supple. No lymph nodes noted. No crepitus CVS: Normal heart rate and rhythm. Pulses normal. Normal S1 and S2 Respiratory: No respiratory distress. Breath sounds normal. No Wheezing. No rales Abdomen: Soft and nontender. No rigidity. No distention. Skin: Skin warm and dry. Normal skin color. Normal skin turgor. Extremities: No lower extremity edema. No Lacerations. No Rash Neuro: Oriented X 3. No motor deficit. No sensory deficit. Moving all extremities. No slurred speech. CN 2 through 12 grossly intact Psych: calm, cooperative, normal affect, seems to be intoxicated versus influence of drugs Medical Decision Making Medical Decision Making [facility] Narrative: My interpretation of labs: Patient's hematology shows no acute abnormality. Normal chemistry, LFTs chronically elevated in ETOH abuse pattern. Patient's urinalysis negative for UTI, positive for fentanyl and cocaine Care team consult pending Physician observation started at 02:02 Sign-out given to my colleague Dr. Jarquin Lab Data MDM Lab Attestation statement: I reviewed the patient's lab results. 08/11/24 00:23 08/11/24 00:23 Labs: Lab Results 08/11/24 Range/Units 00:23 WBC 11.9 H (4.8-10.8) X10*3/uL RBC 3.93 L D (4.60-5.80) X10*6/uL Hgb 12.1 L (14.0-18.0) g/dl Hct 36.0 L D (42.0-52.0) % MCV 91.6 (80.0-98.0) fL MCH 30.8 (27.0-33.0) pg MCHC 33.6 (31.0-36.0) g/dl RDW 13.2 (11.0-16.0) % Plt Count 206 D (160-400) X10*3/uL MPV 10.1 (9.4-12.4) fL Immature Gran % (Auto) 0.3 (0.0-0.4) % Neut % (Auto) 67.7 (45-73) % Lymph % (Auto) 18.7 L (20-40) % [place] % (Auto) 12.8 H (2-11) % Eos % (Auto) 0.2 (0-4) % Baso % (Auto) 0.3 (0-2) % Lymph # (Auto) 2.2 (1.2-4.9) X10*3/uL [place] # (Auto) 1.5 H (0.1-1.2) X10*3/uL Eos # (Auto) 0.0 (0.0-0.4) X10*3/uL Baso # (Auto) 0.0 (0.0-0.2) X10*3/uL Abs Immat Gran (auto) 0.04 H (0.00-0.03) X10*3/uL Absolute Neuts (auto) 8.1 (2.0-8.3) x10*3/uL Absolute Nucleated RBC 0.000 (0.0-0.012) X10*3/uL Nucleated RBC % (auto) 0.0 (0.0-0.2) /100WBC Smear Tech's Comments VERIFIED Sodium 135 (135-145) mmol/L Potassium 4.0 (3.3-5.1) mmol/L Chloride 107 (96-108) mmol/L Carbon Dioxide 22 (22-29) mmol/L Anion Gap 10 L (12-20) BUN 20 H (9-16) mg/dL Creatinine 0.74 (0.5-1.4) mg/dL Estim Creat Clear Calc 106.1 Estimated GFR > 60 Random Glucose 81 (60-115) mg/dL Calcium 8.1 L D (8.4-10.2) mg/dL Total Bilirubin 1.4 H (0.0-1.0) mg/dL AST 521 H (5-37) U/L ALT 778 H (0-40) U/L Alkaline Phosphatase 134 H (39-117) U/L Total Protein 7.1 (6.5-8.0) g/dL Albumin 3.2 L (3.5-5.0) g/dL Urine Color Dark Yellow Urine Appearance Clear Urine pH 5.5 (5.0-9.0) Ur Specific [place] 1.010 (1.005-1.025) Urine Protein Negative (Neg-Trace) mg/dL Urine Glucose (UA) Negative (Negative) mg/dL Urine Ketones Negative (Negative) mg/dL Urine Blood Negative (Negative) Urine Nitrite Negative (Negative) Ur Leukocyte Esterase Negative (Negative) Urine Opiates Screen Not Detected (Not Detect) Ur Buprenorphine Scrn Not Detected (Not Detect) ng/mL Ur Oxycodone Screen Not Detected (Not Detect) ng/mL Urine Methadone Screen Not Detected (Not Detect) ng/mL Urine Fentanyl Screen POSITIVE H (Not Detect) Ur Barbiturates Screen Not Detected (Not Detect) Ur Phencyclidine Scrn Not Detected (Not Detect) Ur Amphetamines Screen Not Detected (Not Detect) U Benzodiazepines Scrn Not Detected (Not Detect) Urine Cocaine Screen POSITIVE H (Not Detect) U Marijuana (THC) Screen Not Detected (Not Detect) Ethyl Alcohol < 10 mg/dL Critical Care Time Critical Care Time Critical Care Time: Yes Total Critical Care Time: 35 Attestation: I have personally provided critical care time. Time includes review of lab data, radiology results, discussion with consultants, and monitoring for potential decompensation. Intervention performed as documented. Discharge Plan Discharge Clinical Impression: Acute psychosis Patient Disposition: Still a Patient Prescriptions: No Action No Known Home Meds Print Language: Mohawk
[2024-08-11 06:12] VITALS: BP 139/67; PULSE 88; RESP 22; TEMP 37; O2SAT 93
--- NOTE | 2024-08-11 06:18 | PC.NURSE ---
Patient slept through the night, no distress observed/reported, med rec completed/currently not on any home medication, care consult ordered/pending evaluation, 15 minutes safety check, no behavior and safety concerns, lab completed, VSS, will continue to monitor
--- NOTE | 2024-08-11 09:54 | PC.NURSE ---
pt ate breakfast and has been laying in bed all morning, care team met with him, pt denies regularly etoh or history of withdrawal , denie opiate use, states only cocaine, currently sleeping
--- NOTE | 2024-08-11 13:12 | MHC.EDTECH ---
This tech provided lunch tray
[2024-08-11 18:24] VITALS: BP 119/57; PULSE 63; RESP 20; TEMP 36.5; O2SAT 97
[2024-08-12 06:47] VITALS: BP 139/84; PULSE 88; RESP 18; TEMP 37.1; O2SAT 94
--- NOTE | 2024-08-12 06:48 | PC.NURSE ---
Patient slept through the night, no distress observed/reported, disposition per care team is section 12 dual diagnosis inpatient bed search, 15 minutes safety check, no behavior and safety concerns, VSS, will continue to monitor
[2024-08-12 07:26] VITALS: BP 120/90; PULSE 86; RESP 20; TEMP 37.2; O2SAT 97
--- NOTE | 2024-08-12 15:20 | PHA.MEDREC ---
Pharmacy Consult ? Medication Reconciliation Pharmacy has completed the medication reconciliation. Used list from [place]. Went to confirm with patient, whatever they give me I take , says he last took his medications 1 week ago.
[2024-08-12 17:10] VITALS: BP 141/76; PULSE 69; RESP 14; TEMP 36.9; O2SAT 97
[2024-08-12 17:13] VITALS: BP 141/76; PULSE 69; RESP 14; TEMP 36.9; O2SAT 97
== END 2024-08-12 17:14 | disposition home or self-care (01) ==
PROVIDERS: Emergency Provider Emergency Medicine
DX: F23 Brief psychotic disorder (principal); F19.10 Other psychoactive substance abuse, uncomplicated; Z59.00 Homelessness unspecified
CPT/HCPCS: 36415; 80053; 80307; 81003; 85025; 99285; S9485

== ENCOUNTER → 2024-08-16 00:41 | Outpatient (BNV) | payer OTHER, SELFPAY | PROVIDERS: Emergency Provider Emergency Medicine; Visit Provider Internal Medicine | DX: R06.02 Shortness of breath (principal) | CPT/HCPCS: 93010 ==

== ENCOUNTER → 2024-08-16 00:41 | Outpatient (BNV) | payer OTHER, SELFPAY | PROVIDERS: Emergency Provider Emergency Medicine; Visit Provider Radiology Diagnostic Radiology | DX: R06.02 Shortness of breath (principal); R05.9 Cough, unspecified | CPT/HCPCS: 71045 ==

== ENCOUNTER 2025-02-14 04:52 | Emergency (ER) | payer OTHER, SELFPAY ==
[2025-02-14 05:24] VITALS: BP 132/67; PULSE 59; RESP 16; TEMP 36.7; O2SAT 98; BMI 20.4
[2025-02-14 06:02] LABS: MANUAL DIFF FLAG NO
[2025-02-14 06:06] LABS: Hematocrit 37.1 % (42.0-52.0); Hemoglobin 12.7 g/dl (14.0-18.0); Imm Gran Abs Auto 0.03 X10*3/uL (0.00-0.03); Imm Gran Pct Auto 0.3 % (0.0-0.4); Lymphocytes Absolute Auto 2.6 X10*3/uL (1.2-4.9); Mean Corpuscular HGB Conc 34.2 g/dl (31.0-36.0); Mean Corpuscular Hemoglobin 30.8 pg (27.0-33.0); Mean Corpuscular Volume 89.8 fL (80.0-98.0); NRBC Abs Auto 0.000 X10*3/uL (0.0-0.012); NRBC Pct Auto 0.0 /100WBC (0.0-0.2); Platelet Count 261 X10*3/uL (160-400); Red Blood Count 4.13 X10*6/uL (4.60-5.80); White Blood Count 9.3 X10*3/uL (4.8-10.8)
[2025-02-14 06:16] LABS: Alanine Aminotransferase 10 U/L (0-40); Albumin Level 3.6 g/dL (3.5-5.0); Alkaline Phosphatase 67 U/L (39-117); Anion Gap 11 (12-20); Aspartate Amino Transferase 19 U/L (5-37); Blood Urea Nitrogen 16 mg/dL (9-16); Calcium 9.2 mg/dL (8.4-10.2); Carbon Dioxide 26 mmol/L (22-29); Chloride 106 mmol/L (96-108); Creatinine Clr Calc Pharmacy 78.9; Estimated Glomerular Filt Rate > 60; Potassium 4.3 mmol/L (3.3-5.1); Sodium 139 mmol/L (135-145); Total Protein 7.3 g/dL (6.5-8.0)
--- NOTE | 2025-02-14 07:12 | ED.SKABFB ---
HPI - Skin/Abscess/Foreign Bdy General Chief complaint: Skin/Abscess/Foreign Body Stated complaint: Body Rash left leg Time Seen by Provider: 02/14/25 07:04 Source: patient Mode of arrival: ambulatory Limitations: no limitations History of Present Illness ED Provider: DR. Arciniega HPI narrative: 64-year-old male who is currently homeless just came out of custodial presented with right lower extremity area of redness and pustular rash on right leg, no fever, no chills, no no swelling of the leg, patient stated that when he was in custodial they provided him with a dairy blanket that he at use a knee think that is what made his leg is infected. Related Data Home Medications ?Medication ?Instructions ?Recorded ?Confirmed folic acid 1 mg tablet 1 mg PO DAILY 08/12/24 08/12/24 multivitamin 1 tab PO DAILY 08/12/24 08/12/24 naloxone 4 mg/actuation nasal spray 1 spray intranasal Q2M PRN overdose 08/12/24 08/12/24 nicotine 14 mg/24 hr daily 1 patch transdermal DAILY 08/12/24 08/12/24 transdermal patch quetiapine 50 mg tablet 50 mg PO BEDTIME 08/12/24 08/12/24 thiamine HCl (vitamin B1) 100 mg 100 mg PO DAILY 08/12/24 08/12/24 tablet Previous Rx's ?Medication ?Instructions ?Recorded azithromycin 250 mg tablet See Rx Instructions PO .COMPLEX #6 08/16/24 (Zithromax Z-Mckinley) tabs doxycycline hyclate 100 mg tablet 100 mg PO BID #14 tabs 02/14/25 mupirocin 2 % topical ointment 1 appl topical TID #22 grams 02/14/25 (Centany) Allergies Allergy/AdvReac Type Severity Reaction Status Date / Time No Known Allergies Allergy Verified 02/14/25 05:25 Review of Systems Review of Systems: All other systems are reviewed and are negative Constitutional: Reports as per HPI and Reports no additional constitutional complaints Eyes: Reports as per HPI and Reports no additional eye complaints Reports system reviewed and no additional complaints, except as documented Cardiovascular: Reports as per HPI and Reports no additional cardiovascular complaints Respiratory: Reports as per HPI and Reports no additional respiratory complaints Gastrointestinal: Reports as per HPI and Reports no additional gastrointestinal complaints Genitourinary: Reports no additional female genitourinary complaints Musculoskeletal: Reports no additional musculoskeletal complaints Skin/Breast: Reports system reviewed and no additional complaints, except as docu Psychiatric: Reports no additional psychiatric complaints Endocrine: Reports no additional endocrine complaints Hematologic/Lymphatic: Reports no additional hematologic/lymphatic complaints Allergic/Immunologic: Reports no additional allergic/immunologic complaints Reports system reviewed and no additional complaints, except as documented and Reports Abnormal speech present [facility] Past Medical History Medical History Active substance abuse Social History Social History Alcohol intake: current Alcohol intake frequency: 3 or more drinks per day Alcohol type: beer, wine and hard liquor Substance Use Type: Crack/Cocaine Advance Directives: No Advance Directives Information Provided: Yes Physical Exam Vital Signs: Vital Signs: Last Vital Signs Temp 98.1 F 02/14/25 05:24 Pulse 59 02/14/25 05:24 Resp 16 02/14/25 05:24 BP 132/67 02/14/25 05:24 Pulse Ox 98 02/14/25 05:24 O2 Del Method Room Air 02/14/25 05:24 BMI result Body Mass Index 20.4 Vital signs have been reviewed and appear to be correct. Blood pressure elevated. Heart rate normal. Respiratory rate normal. Temperature normal. Oxygen saturation normal. Appearance: Alert. Oriented X3. No acute distress. Head: Normal external exam. Normocephalic. Atraumatic. No Tuttle signs noted. No raccoon eyes noted Eyes: PERRLA. EOMI. Conjunctiva and sclera normal. Eyelids normal. ENT: TM's Normal. Pharynx normal. Uvula midline. Moist mucous membranes. No trismus noted. No drooling noted. No muffled voice noted. Neck: Normal inspection. Neck supple. FROM. No adenopathy. Thyroid Normal. No meningeal signs. No neck mass noted. CVS: Normal heart rate and rhythm. Heart sound normal. No murmurs noted. Pulses normal throughout. Respiratory: No respiratory distress. Painless inspiration. Breath sounds normal. No wheezes/rales/rhonchi noted. Chest nontender. No accessory muscle usage noted or decreased air movement noted. Abdomen: Soft and nontender. Bowel sounds normal in all 4 quadrants. No distention noted. No organomegaly noted. No visible injury noted. Back: No CVA tenderness. Full range of motion noted. Skin: Skin warm and dry. Normal skin color. Normal skin turgor. No rashes/lesions/lacerations noted. Extremities: Right le x 5 cm area of redness, a few pustular/vesicular rash on top of the redness, no calf tenderness, no swelling, neurovascularly intact. Neuro: Oriented X 3. Cranial nerve exam: II-XII are grossly intact No motor deficit. No sensory deficit. Reflexes normal. Course Reevaluation(s) Reevaluation #1: Right lower extremity cellulitis with pustular rash, restart on doxycycline and mupirocin, patient was instructed to follow-up with PCP return if any fever or chills. Time: 07:20 Medical Decision Making Differential Diagnosis Differential Diagnoses: The differential diagnosis associated with the presentation includes (Cellulitis, extremity abscess.) Admission/Observation Consideration of admission/observation: Escalation of care including admission/observation considered Lab Data MDM Lab Attestation statement: I reviewed the patient's lab results. 02/14/25 05:57 02/14/25 05:57 Labs: Lab Results 02/14/25 Range/Units 05:57 WBC 9.3 (4.8-10.8) X10*3/uL RBC 4.13 L (4.60-5.80) X10*6/uL Hgb 12.7 L (14.0-18.0) g/dl Hct 37.1 L (42.0-52.0) % MCV 89.8 (80.0-98.0) fL MCH 30.8 (27.0-33.0) pg MCHC 34.2 (31.0-36.0) g/dl RDW 13.4 (11.0-16.0) % Plt Count 261 (160-400) X10*3/uL MPV 9.3 L (9.4-12.4) fL Immature Gran % (Auto) 0.3 (0.0-0.4) % Neut % (Auto) 59.9 (45-73) % Lymph % (Auto) 28.3 (20-40) % [place] % (Auto) 9.5 (2-11) % Eos % (Auto) 1.4 (0-4) % Baso % (Auto) 0.6 (0-2) % Lymph # (Auto) 2.6 (1.2-4.9) X10*3/uL [place] # (Auto) 0.9 (0.1-1.2) X10*3/uL Eos # (Auto) 0.1 (0.0-0.4) X10*3/uL Baso # (Auto) 0.1 (0.0-0.2) X10*3/uL Abs Immat Gran (auto) 0.03 (0.00-0.03) X10*3/uL Absolute Neuts (auto) 5.6 (2.0-8.3) x10*3/uL Absolute Nucleated RBC 0.000 (0.0-0.012) X10*3/uL Nucleated RBC % (auto) 0.0 (0.0-0.2) /100WBC Sodium 139 (135-145) mmol/L Potassium 4.3 (3.3-5.1) mmol/L Chloride 106 (96-108) mmol/L Carbon Dioxide 26 (22-29) mmol/L Anion Gap 11 L (12-20) BUN 16 (9-16) mg/dL Creatinine 0.94 (0.5-1.4) mg/dL Estim Creat Clear Calc 78.9 Estimated GFR > 60 Random Glucose 98 (60-115) mg/dL Calcium 9.2 D (8.4-10.2) mg/dL Total Bilirubin 0.4 (0.0-1.0) mg/dL AST 19 (5-37) U/L ALT 10 (0-40) U/L Alkaline Phosphatase 67 (39-117) U/L Total Protein 7.3 (6.5-8.0) g/dL Albumin 3.6 (3.5-5.0) g/dL Discharge Plan Discharge Clinical Impression: Cellulitis, Impetigo Patient Disposition: Home, Self-Care Instructions: Impetigo (DC) Prescriptions: New doxycycline hyclate 100 mg tablet 100 mg PO BID Qty: 14 0RF mupirocin [Centany] 2 % ointment 1 appl topical TID Qty: 22 0RF Rx Instructions: Applied to the affected area on your right leg. No Action multivitamin Tablet 1 tab PO DAILY nicotine 14 mg/24 hr Patch 24 Hour 1 patch TRANSDERMAL DAILY thiamine HCl (vitamin B1) 100 mg Tablet 100 mg PO DAILY folic acid 1 mg Tablet 1 mg PO DAILY quetiapine 50 mg Tablet 50 mg PO BEDTIME naloxone 4 mg/actuation [place],Non-Aerosol 1 spray INTRANASAL Q2M PRN (Reason: overdose) Rx Instructions: spray 1 dose into ONE nostril; alternate nostrils w each dose until help arrives azithromycin [Zithromax Z-Mckinley] 250 mg tablet See Rx Instructions .ROUTE .COMPLEX Qty: 6 0RF Rx Instructions: For 250 mg dose pack: take 500 mg today (day 1), then 250 mg for 4 days (days 2-5) Print Language: Pashto
[2025-02-14 07:27] VITALS: BP 124/63; PULSE 60; RESP 14; TEMP 36.6; O2SAT 99
[2025-02-14 07:32] VITALS: BP 124/63; PULSE 60; RESP 14; TEMP 36.6; O2SAT 99
== END 2025-02-14 07:34 | disposition home or self-care (01) ==
PROVIDERS: Emergency Provider Emergency Medicine
DX: L03.115 Cellulitis of right lower limb (principal); L01.00 Impetigo, unspecified; Z59.00 Homelessness unspecified
CPT/HCPCS: 36415; 80053; 85025; 99283